=== PATIENT | male | born 1960 | race Caucasian/White ===

== ENCOUNTER 2017-06-29 05:10 | Emergency (ER) | payer OTHER ==
[2017-06-29] MEDS ORDERED: Sodium Chloride 0.9% 1000 ML 1,000 ML ONE ×3 (05:20→06:36)
[2017-06-29] MEDS: Sodium Chloride 0.9% 1000 ML 1,000 ML IV STA ×2 (05:21→06:00)
[2017-06-29 05:29] LABS: BASOPHIL % 0.3 % (0.0-0.4); Basophil (Absolute #) 0.03 (0-0.4); Eosinophil % 0.1 % (0.00-5.0); Eosinophil (Absolute #) 0.01 (0-0.5); Granulocyte Absolute (ANC) 6.24 (1.4-6.9); Hematocrit 50.1 % (42-50); Hemoglobin 17.2 gm/dl (12.5-18.0); Lymphocyte (Absolute #) 1.39 (1.0-4.6); Lymphocytes % 15.8 % (24.0-44.0); Mean Cell Volume 89.5 fl (78-100); Mean Corpuscular Hemoglobin 30.7 pg (26-32); Mean Corpuscular Hgb Concent. 34.3 g/dl (32-36); Mean Platelet Volume 10.8 fl (6-9.5); Monocyte (Absolute #) 1.13 (0.0-1.3); Monocytes % 12.8 % (0.0-12.0); Platelet Count 141 K/mm3 (150-450); Red Cell Distribution Width 13.5 % (11.5-14.0); White Blood Count 8.8 K/mm3 (4.0-10.5)
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
[2017-06-29 05:47] LABS: Lactic Acid 3.8 (0.4-2.0)
[2017-06-29 05:49] LABS: ALBUMIN 4.8 g/dL (3.4-5.0); ALKALINE PHOSPHATASE 144 U/L (46-116); ANION GAP 27.6 MEQ/L (5-15); BLOOD UREA NITROGEN 15 mg/dL (9-20); CHLORIDE 98 mEq/L (98-107); Calcium 11.3 mg/dL (8.5-10.1); Carbon Dioxide 19.1 mEq/L (21-32); Creatinine 1 1.37 mg/dl (0.55-1.30); ETHYL ALCOHOL < 0.010 % (0.00-0.01); Glucose 178 MG/DL (70-110); Potassium 3.9 mEq/L (3.5-5.1); SGOT/AST 67 U/L (15-37); SGPT/ALT 68 U/L (12-78); SODIUM 141 mEq/L (136-145); Total Protein 9.8 gm/dL (6.4-8.2)
[2017-06-29] MEDS ORDERED: Sodium Chloride 0.9% 100 ML IVPB 100 ML IV ONE (05:59)
[2017-06-29] MEDS ORDERED: Sodium Chloride 0.9% 1000 ML 1,000 ML IV STA (06:31)
[2017-06-29 06:42] LABS: Amphetamine,Urine POS. (NEGATIVE); Barbiturate,Urine NEG. (NEGATIVE); Benzodiazepine,Urine NEG. (NEGATIVE); Cocaine,Urine NEG. (NEGATIVE); Methadone,Urine NEG. (NEGATIVE); Opiate,Urine NEG. (NEGATIVE); PCP,Urine NEG. (NEGATIVE); THC,Urine NEG. (NEGATIVE)
[2017-06-29 06:42] LABS: Appearance CLEAR (CLEAR); Bilirubin NEGATIVE (NEGATIVE); Blood 50 Ery/ul (0-5); Glucose 100 mg/dL (NEGATIVE); Ketones MODERATE (NEGATIVE); Leukocyte Esterase NEGATIVE (NEGATIVE); Nitrite NEGATIVE (NEGATIVE); Protein,Urine Dip 500 (Negative); Specific Gravity 1.015 (1.005-1.025); Urobilinogen NORMAL mg/dL (0-1)
[2017-06-29 06:43] LABS: Lactic Acid 2.2 (0.4-2.0)
[2017-06-29 06:44] LABS: Bacteria RARE /HPF (NEGATIVE); Epithelial Cells RARE /HPF (FEW); Mucus SLIGHT /HPF (NEGATIVE); WBC 0-2 /HPF (0-5)
[2017-06-29] MEDS ORDERED: LOPRESSOR 5 MG/5 ML INJECTION IV ONE ×2 (06:47→06:51)
[2017-06-29 10:57] VITALS: BP 168/119; PULSE 94; O2SAT 94
--- NOTE | 2017-06-29 19:58 | XRAY ---
Indication: Status post fall. Possible seizure. ETOH. Multiple contiguous axial images obtained through the head without contrast. Comparison: October 13, 2015. Again normal appearing brain parenchyma, ventricles, and bony calvarium. Minimal mucosal thickening of both maxillary sinuses. Remaining visualized paranasal sinuses and mastoid air cells are clear. Impression: No acute intracranial abnormalities. Minimal paranasal sinus disease. Comment: Preliminary interpretation was made by [facility]. No discrepancy. CTDI 60.68
== END 2017-06-29 10:57 | disposition home or self-care (01) ==
LOC: ED 05:10
DX: R56.9 Unspecified convulsions (principal); F10.10 Alcohol abuse, uncomplicated; K70.10 Alcoholic hepatitis without ascites; R74.0 Nonspecific elevation of levels of transaminase and lactic acid dehydrogenase [LDH]
CPT/HCPCS: 36415; 70450; 80053; 80307; 81000; 83605; 83735; 85025; 87086; 96360; 96361; 96374; 99284; G0480

== ENCOUNTER 2017-06-30 22:41 | Emergency (ER) | payer OTHER ==
[2017-06-30] MEDS ORDERED: Lactated Ringers 1,000 ML IV SCH (23:30)
[2017-06-30 23:33] LABS: BASOPHIL % 0.3 % (0.0-0.4); Basophil (Absolute #) 0.02 (0-0.4); Eosinophil (Absolute #) 0.13 (0-0.5); Granulocyte Absolute (ANC) 3.65 (1.4-6.9); Granulocytes % 55.6 % (36.0-66.0); Hematocrit 39.4 % (42-50); Hemoglobin 14.1 gm/dl (12.5-18.0); Lymphocyte (Absolute #) 1.96 (1.0-4.6); Lymphocytes % 29.8 % (24.0-44.0); Mean Cell Volume 86.4 fl (78-100); Mean Corpuscular Hemoglobin 30.9 pg (26-32); Mean Corpuscular Hgb Concent. 35.8 g/dl (32-36); Monocyte (Absolute #) 0.81 (0.0-1.3); Monocytes % 12.3 % (0.0-12.0); Platelet Count 95 K/mm3 (150-450); Red Blood Count 4.56 M/mm3 (4.1-5.6); Red Cell Distribution Width 12.7 % (11.5-14.0); White Blood Count 6.6 K/mm3 (4.0-10.5)
[2017-07-01] LABS: SALICYLATE < 1.0 mg/dl (20-30)
[2017-07-01 00:02] LABS: ALBUMIN 4.4 g/dl (3.5-5.0); ALKALINE PHOSPHATASE 109 U/L (38-126); ANION GAP 20.3 MEQ/L; BLOOD UREA NITROGEN 17 mg/dl (9-20); CHLORIDE 96 mEq/L (98-107); Carbon Dioxide 20 mmol/L (22-30); Creatinine 1 0.82 mg/dl (0.66-1.25); Glucose 106 mg/dL (74-106); Potassium 3.2 mmol/L (3.5-5.1); SGOT/AST 194 U/L (17-59); SGPT/ALT 115 U/L (0-50); SODIUM 133 mmol/L (137-145); Total Protein 7.6 mg/dl (6.3-8.2)
[2017-07-01 00:12] LABS: ACETAMINOPHEN < 10 ug/ml (10-30)
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
[2017-07-01 06:16] VITALS: BP 117/69; PULSE 78
[2017-07-01 06:43] VITALS: O2SAT 94
== END 2017-07-01 06:49 | disposition home or self-care (01) ==
LOC: ED 22:41
DX: F10.129 Alcohol abuse with intoxication, unspecified (principal)
CPT/HCPCS: 36415; 80053; 80307; 85025; 93005; 96360; 99284; G0480; G0481

== ENCOUNTER 2017-07-20 12:54 | Emergency (ER) | payer OTHER ==
[2017-07-20] MEDS ORDERED: Keppra 500 MG/5 ML*** 1,000 MG in D5w 100ML Mini Bag 100 ML 100 ML IV ONE (13:08)
[2017-07-20] MEDS ORDERED: Sodium Chloride 0.9% 1000 ML 1,000 ML IV STA (13:08)
[2017-07-20] MEDS ORDERED: Sodium Chloride 0.9% 1000 ML 1,000 ML ONE (13:25)
[2017-07-20 13:26] LABS: Granulocyte Absolute (ANC) 3.07 (1.4-6.9); Hematocrit 42.7 % (42-50); Hemoglobin 14.6 gm/dl (12.5-18.0); Mean Cell Volume 88.4 fl (78-100); Mean Corpuscular Hemoglobin 30.2 pg (26-32); Mean Corpuscular Hgb Concent. 34.2 g/dl (32-36); Mean Platelet Volume 9.1 fl (6-9.5); Platelet Count 124 K/mm3 (150-450); Red Blood Count 4.83 M/mm3 (4.1-5.6); Red Cell Distribution Width 13.4 % (11.5-14.0); White Blood Count 4.2 K/mm3 (4.0-10.5)
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
[2017-07-20 13:39] LABS: ALBUMIN 4.7 g/dL (3.5-5.0); ALKALINE PHOSPHATASE 125 U/L (38-126); ANION GAP 21.4 MEQ/L (5-15); BLOOD UREA NITROGEN 10 mg/dL (9-20); CHLORIDE 99 mmol/L (98-107); Calcium 9.3 mg/dL (8.4-10.2); Carbon Dioxide 20 mmol/L (22-30); Creatinine 1 0.73 mg/dL (0.66-1.25); Glucose 190 mg/dL (74-106); Potassium 3.9 mmol/L (3.5-5.1); SGOT/AST 68 U/L (17-59); SGPT/ALT 70 U/L (0-50); SODIUM 137 mmol/L (137-145); Total Protein 7.9 g/dL (6.3-8.2)
[2017-07-20 14:00] LABS: Eosinophil 1 % (0.00-3.0); Lymphocytes 19 % (24-44); Monocyte 4 % (0.0-12.0); Neutrophils 76 % (36.-66.); Platelet Estimate NORMAL (NORMAL); Total Cells Counted 100
[2017-07-20 15:07] LABS: Appearance CLEAR (CLEAR); Glucose NEGATIVE (NEGATIVE); Leukocyte Esterase TRACE (NEGATIVE); Nitrite NEGATIVE (NEGATIVE); Protein,Urine Dip 1+ (Negative); Specific Gravity 1.015 (1.005-1.025)
[2017-07-20 15:08] LABS: Bacteria FEW /HPF (NEGATIVE); Bilirubin NEGATIVE (NEGATIVE); Epithelial Cells RARE /HPF (FEW); Ketones TRACE (NEGATIVE); Mucus SLIGHT /HPF (NEGATIVE); Urobilinogen NORMAL mg/dL (0-1); WBC 0-2 /HPF (0-5)
[2017-07-20 15:17] LABS: Amphetamine,Urine NEGATIVE (NEGATIVE); Barbiturate,Urine NEGATIVE (NEGATIVE); Benzodiazepine,Urine NEGATIVE (NEGATIVE); Cocaine,Urine NEGATIVE (NEGATIVE); Methadone,Urine NEGATIVE (NEGATIVE); Opiate,Urine NEGATIVE (NEGATIVE); PCP,Urine NEGATIVE (NEGATIVE); THC,Urine NEGATIVE (NEGATIVE)
[2017-07-20 16:42] VITALS: BP 154/88; PULSE 82; O2SAT 98
--- NOTE | 2017-07-20 19:18 | XRAY ---
Indication: Seizure. Multiple contiguous axial images obtained through the head without contrast. Comparison: June 29, 2017. Again normal appearing brain parenchyma, ventricles, and bony calvarium. There remains minimal mucosal thickening of both maxillary sinuses. Mastoid air cells are clear. Impression: Again no acute intracranial abnormalities with incidental minimal paranasal sinus disease. Comment: Preliminary interpretation was made by C. No discrepancy. CTDI 68.81
--- NOTE | 2017-07-20 19:20 | XRAY ---
Indication: Cough. Comparison: October 13, 2015. Portable chest remains underinflated with stable hilar calcified granulomas. No focal infiltrate, consolidation, or large effusion. Heart is not enlarged. Bony thorax intact. Impression: Nonacute underinflated chest. Again evidence for old granulomatous disease.
== END 2017-07-20 16:44 | disposition home or self-care (01) ==
LOC: ED 12:54
DX: G40.909 Epilepsy, unspecified, not intractable, without status epilepticus (principal)
CPT/HCPCS: 36415; 70450; 71045; 80053; 80307; 81000; 85025; 87086; 93005; 96360; 96365; 99284; G0480; J1953

== ENCOUNTER 2017-09-14 20:43 | Observation (INO) | payer OTHER ==
[2017-09-14] MEDS ORDERED: Sodium Chloride 0.9% 1000 ML 1,000 ML IV STA (21:01)
[2017-09-14] MEDS ORDERED: Sodium Chloride 0.9% 1000 ML 1,000 ML ONE (21:11)
[2017-09-14 21:30] LABS: BASOPHIL % 0.8 % (0.0-0.4); Basophil (Absolute #) 0.04 (0-0.4); Eosinophil % 2.9 % (0.00-5.0); Eosinophil (Absolute #) 0.15 (0-0.5); Granulocyte Absolute (ANC) 1.36 (1.4-6.9); Granulocytes % 26.4 % (36.0-66.0); Lymphocyte (Absolute #) 3.15 (1.0-4.6); Mean Cell Volume 88.1 fl (78-100); Mean Corpuscular Hemoglobin 30.7 pg (26-32); Mean Corpuscular Hgb Concent. 34.9 g/dl (32-36); Mean Platelet Volume 9.3 fl (6-9.5); Monocyte (Absolute #) 0.46 (0.0-1.3); Monocytes % 8.9 % (0.0-12.0); Platelet Count 122 K/mm3 (150-450); Red Blood Count 4.88 M/mm3 (4.1-5.6); Red Cell Distribution Width 14.3 % (11.5-14.0); White Blood Count 5.2 K/mm3 (4.0-10.5)
[2017-09-14 21:38] LABS: Appearance CLEAR (CLEAR); Bilirubin NEGATIVE (NEGATIVE); Blood NEGATIVE Ery/ul (0-5); Glucose NEGATIVE (NEGATIVE); Ketones NEGATIVE (NEGATIVE); Leukocyte Esterase NEGATIVE (NEGATIVE); Nitrite NEGATIVE (NEGATIVE); Protein,Urine Dip TRACE (Negative); Specific Gravity 1.005 (1.005-1.025); Urobilinogen NORMAL mg/dL (0-1)
[2017-09-14 21:39] LABS: Bacteria FEW /HPF (NEGATIVE); Epithelial Cells FEW /HPF (FEW); Mucus SLIGHT /HPF (NEGATIVE); WBC 0-2 /HPF (0-5)
[2017-09-14 21:41] LABS: ALBUMIN 4.5 g/dL (3.5-5.0); ALKALINE PHOSPHATASE 125 U/L (38-126); ANION GAP 24.4 MEQ/L (5-15); BLOOD UREA NITROGEN 13 mg/dL (9-20); CHLORIDE 104 mmol/L (98-107); CK-Creatinine Phosphokinase 64 U/L (55-170); Carbon Dioxide 22 mmol/L (22-30); Creatinine 1 0.69 mg/dL (0.66-1.25); Glucose 100 mg/dL (74-106); LIPASE 320 U/L (23-300); Potassium 4.1 mmol/L (3.5-5.1); SGOT/AST 123 U/L (17-59); SGPT/ALT 100 U/L (0-50); SODIUM 145 mmol/L (137-145); Total Protein 8.1 g/dL (6.3-8.2)
[2017-09-14 21:43] LABS: INR 0.9 (0.8-3.0)
[2017-09-14 21:47] LABS: Amphetamine,Urine NEGATIVE (NEGATIVE); Barbiturate,Urine NEGATIVE (NEGATIVE); Benzodiazepine,Urine NEGATIVE (NEGATIVE); Cocaine,Urine NEGATIVE (NEGATIVE); Methadone,Urine NEGATIVE (NEGATIVE); Opiate,Urine NEGATIVE (NEGATIVE); PCP,Urine NEGATIVE (NEGATIVE); THC,Urine NEGATIVE (NEGATIVE)
[2017-09-14 21:55] LABS: TROPONIN < 0.012 ng/mL (0.000-0.034)
[2017-09-14 21:56] LABS: ACETAMINOPHEN < 10 ug/ml (10-30); ETHYL ALCOHOL 418 mg/dL (0-10); SALICYLATE < 1.0 mg/dL (2-20)
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
[2017-09-15] MEDS ORDERED: DUONEB 0.5-3 MG/3 ml Neb IH PRN (00:29)
[2017-09-15] MEDS ORDERED: Ativan 2 MG/1 ML VIAL IV PRN (00:32)
[2017-09-15] MEDS ORDERED: THERAGRAN MULTIVITAMIN PO ONE (00:32)
[2017-09-15] MEDS ORDERED: FOLATE 1 MG PO ONE (00:32)
[2017-09-15] MEDS: Sodium Chloride 0.9% 1000 ML 1,000 ML IV SCH ×2 (01:31→11:42)
[2017-09-15 05:26] LABS: BASOPHIL % 0.5 % (0.0-0.4); Basophil (Absolute #) 0.02 (0-0.4); Eosinophil % 2.2 % (0.00-5.0); Eosinophil (Absolute #) 0.09 (0-0.5); Granulocyte Absolute (ANC) 1.35 (1.4-6.9); Granulocytes % 33.6 % (36.0-66.0); Hematocrit 40.3 % (42-50); Hemoglobin 13.9 gm/dl (12.5-18.0); Lymphocyte (Absolute #) 2.13 (1.0-4.6); Mean Cell Volume 89.4 fl (78-100); Mean Corpuscular Hemoglobin 30.8 pg (26-32); Mean Corpuscular Hgb Concent. 34.5 g/dl (32-36); Mean Platelet Volume 9.3 fl (6-9.5); Monocyte (Absolute #) 0.43 (0.0-1.3); Monocytes % 10.7 % (0.0-12.0); Platelet Count 100 K/mm3 (150-450); Red Blood Count 4.51 M/mm3 (4.1-5.6); Red Cell Distribution Width 14.5 % (11.5-14.0)
[2017-09-15 05:45] LABS: ANION GAP 18.6 MEQ/L (5-15); BLOOD UREA NITROGEN 11 mg/dL (9-20); CHLORIDE 105 mmol/L (98-107); Calcium 8.6 mg/dL (8.4-10.2); Carbon Dioxide 24 mmol/L (22-30); Creatinine 1 0.62 mg/dL (0.66-1.25); Glucose 85 mg/dL (74-106); Potassium 4.2 mmol/L (3.5-5.1); SODIUM 143 mmol/L (137-145)
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
--- NOTE | 2017-09-15 08:30 | XRAY ---
Indication: Status post fall. Patient intoxicated. Multiple contiguous axial images obtained through the head without contrast. Comparison: July 20, 2017. Minimal motion artifact even with repeat CT. Grossly normal appearing brain parenchyma, ventricles, and bony calvarium. Visualized paranasal sinuses and mastoid air cells are clear. Impression: Minimal motion artifact. No acute intracranial abnormalities. Comment: Preliminary interpretation was made by [facility]. No discrepancy. CT DI 47.12
--- NOTE | 2017-09-15 08:34 | XRAY ---
Indication: Status post fall. Patient intoxicated. Multiple contiguous axial images obtained through the cervical spine. Sagittal and coronal reformatted images obtained. Comparison: October 13, 2015. 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 Axial images again negative for acute fracture, suspicious bony lesions, or spinal canal stenosis. There remains minimal multilevel degenerative endplate osteophytes and minimal bilateral degenerative facet arthropathy. Sagittal and coronal reformatted images again demonstrates normal alignment with minimal C5-C6 disc space narrowing. No acute compression fracture, subluxation, or jumped facet. Normal appearing craniocervical junction. Visualized noncontrasted soft tissues unremarkable. CT head reported separately. Impression: 1. Again negative acute fracture/subluxation. 2. Stable multilevel degenerative changes. Comment: Preliminary interpretation was made by [facility]. No discrepancy. CT DI 121.21
[2017-09-15] MEDS ORDERED: Pepcid 20 MG VIAL IV SCH (10:00)
[2017-09-15 12:44] VITALS: BP 161/108; PULSE 84; O2SAT 97
--- NOTE | 2017-09-15 14:03 | PCM.DCORD ---
- Discharge Disposition: Home, Self-Care Condition: Stable Prescriptions: New Levetiracetam [Keppra] 750 mg PO BID #60 tablet Discontinued Levetiracetam [Keppra 500 mg ] 500 mg PO BID #60 tablet Follow up with: ISAIAS CRUZ MD [Primary Care Provider] - 1 Week
== END 2017-09-15 15:45 | disposition home or self-care (01) ==
LOC: ED 20:43 → ICU 09-15 00:49
PROVIDERS: ADMIT Family Medicine; ATTEND Family Medicine
DX: F10.10 Alcohol abuse, uncomplicated (principal); G40.909 Epilepsy, unspecified, not intractable, without status epilepticus
CPT/HCPCS: 36415; 70450; 72125; 80048; 80053; 80307; 81000; 82550; 83690; 83735; 84484; 85025; 85610; 93005; 93268; 96360; 99284; G0481; J2060; A9270-GY; G0378; G0480

== ENCOUNTER 2017-11-14 07:46 | Emergency (ER) | payer OTHER ==
[2017-11-14] MEDS ORDERED: Zofran 4 MG/2 ML VIAL IV ONE (07:54)
[2017-11-14] MEDS ORDERED: Sodium Chloride 0.9% 1000 ML 1,000 ML IV STA (07:54)
[2017-11-14] MEDS ORDERED: Zofran 4 MG/2 ML VIAL ONE (07:55)
[2017-11-14] MEDS ORDERED: Adacel Vial IM ONE ×2 (07:56→08:16)
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
[2017-11-14 08:10] LABS: BASOPHIL % 0.4 % (0.0-0.4); Basophil (Absolute #) 0.02 (0-0.4); Eosinophil % 0.5 % (0.00-5.0); Eosinophil (Absolute #) 0.03 (0-0.5); Granulocyte Absolute (ANC) 4.07 (1.4-6.9); Hematocrit 46.7 % (42-50); Hemoglobin 16.4 gm/dl (12.5-18.0); Lymphocyte (Absolute #) 1.08 (1.0-4.6); Lymphocytes % 19.1 % (24.0-44.0); Mean Cell Volume 89.6 fl (78-100); Mean Corpuscular Hemoglobin 31.5 pg (26-32); Mean Corpuscular Hgb Concent. 35.1 g/dl (32-36); Mean Platelet Volume 9.7 fl (6-9.5); Monocyte (Absolute #) 0.45 (0.0-1.3); Platelet Count 63 K/mm3 (150-450); Red Blood Count 5.21 M/mm3 (4.1-5.6); Red Cell Distribution Width 13.5 % (11.5-14.0); White Blood Count 5.7 K/mm3 (4.0-10.5)
[2017-11-14 08:11] VITALS: O2SAT 98
[2017-11-14] MEDS ORDERED: Sodium Chloride 0.9% 1000 ML 1,000 ML ONE (08:16)
[2017-11-14 08:25] LABS: INR 0.95 (0.8-3.0)
[2017-11-14] MEDS ORDERED: Ativan 2 MG/1 ML VIAL IV ONE (08:28)
[2017-11-14] MEDS ORDERED: Ativan 2 MG/1 ML VIAL ONE (08:29)
[2017-11-14 08:32] LABS: ALBUMIN 5.3 g/dL (3.5-5.0); ALKALINE PHOSPHATASE 172 U/L (38-126); ANION GAP 26.8 MEQ/L (5-15); BLOOD UREA NITROGEN 8 mg/dL (9-20); CHLORIDE 98 mmol/L (98-107); CK-Creatinine Phosphokinase 330 U/L (55-170); Calcium 10.1 mg/dL (8.4-10.2); Carbon Dioxide 17 mmol/L (22-30); Creatinine 1 0.84 mg/dL (0.66-1.25); Glucose 180 mg/dL (74-106); SGOT/AST 141 U/L (17-59); SODIUM 138 mmol/L (137-145); Total Protein 9.1 g/dL (6.3-8.2)
[2017-11-14 08:34] LABS: ETHYL ALCOHOL < 10 mg/dL (0-10)
[2017-11-14] MEDS ORDERED: FEVERALL 650 MG PR ONE (08:34)
[2017-11-14] MEDS ORDERED: FEVERALL 325 MG ONE ×2 (08:35→09:02)
[2017-11-14 08:39] LABS: SGPT/ALT 71 U/L (0-50)
[2017-11-14] MEDS ORDERED: Keppra 500 MG/5 ML*** 500 MG in D5w 100ML Mini Bag 100 ML 100 ML IV ONE (08:48)
--- NOTE | 2017-11-14 08:54 | XRAY ---
Indication: Neck pain following fall. Status post seizure. Multiple contiguous axial images obtained through the cervical spine. Sagittal and coronal reformatted images obtained. Comparison: September 14, 2017. Axial images again negative for acute fracture, suspicious bony lesions, or spinal canal stenosis. 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 Sagittal and coronal reformatted images demonstrates normal alignment again with minimal C5-C6 disc space narrowing. No acute compression fracture, subluxation, or jumped facet. Normal-appearing craniocervical junction. Visualized noncontrasted soft tissues and lung apices unremarkable. CT head reported separately. Impression: 1. Again negative acute fracture/subluxation. 2. Stable multilevel degenerative changes. CT DI 20.55
--- NOTE | 2017-11-14 08:56 | XRAY ---
Indication: Seizures. Comparison: July 20, 2017. Portable chest better inflated today and remains clear again with a few incidental calcified granulomas. Heart and mediastinal structures within normal limits. Bony thorax intact again with minimal degenerative changes. Impression: Stable nonacute chest with chronic features.
--- NOTE | 2017-11-14 08:57 | XRAY ---
Indication: Status post fall following seizure. Right head contusion. Multiple contiguous axial images obtained through the head without contrast. Comparison: September 14, 2017. New small right parietal acute subdural hematoma near the vertex at least 5 mm in thickness, 7 cm in AP dimension, and 6 cm in CC dimension. No hydrocephalus or mass effect. Fourth ventricle is midline. Bailey-white matter differentiation preserved. Bony calvarium intact. Impression: New right parietal acute subdural hematoma as detailed. Comment: Telephone report was given to the ordering clinician at 0847 hrs. on November 14, 2017. CTDI 59.30
[2017-11-14] MEDS ORDERED: TRANDATE 20 MG/5 ML SYRINGE IV ONE (09:02)
[2017-11-14 09:04] VITALS: BP 177/110; PULSE 131
== END 2017-11-14 09:28 | disposition short-term general hospital (02) ==
LOC: ED 07:46
DX: S06.5X0A Traumatic subdural hemorrhage without loss of consciousness, initial encounter (principal); R56.9 Unspecified convulsions; S01.01XA Laceration without foreign body of scalp, initial encounter
CPT/HCPCS: 36000; 36415; 70450; 71045; 72125; 80053; 80177; 80307; 82550; 83735; 84484; 85025; 85610; 90471; 90715; 93005; 93041; 96360; 96365; 96374; 96375; 99285; 99291; 99292; J2060; J2405; A9270-GY; G0480